=== PATIENT | female | born 1945 | race Caucasian/White ===

== ENCOUNTER 2020-01-04 12:31 | Inpatient (IN) | payer MEDICARE ==
[2020-01-04 13:30] LABS: Hemoglobin 5.4 g/dL (12.0-16.0); Mean Corpuscular HGB CONC 28.6 g/dL (32.0-36.0); Mean Corpuscular Hemoglobin 18.9 pg (27.0-31.0); Mean Corpuscular Volume 65.9 fL (78.0-98.0); Mean Platelet Volume 9.3 fL (7.4-10.4); Platelet Count 319 thou/uL (130-400); RBC Distribution Width 17.2 % (11.5-14.5); Red Blood Cell (RBC) Count 2.84 mill/uL (4.20-5.40); White Blood Cell (WBC) Count 7.5 thou/uL (4.8-10.8)
[2020-01-04 13:46] LABS: ALT (SGPT) 12 U/L (8-55); AST (SGOT) 14 U/L (5-34); Alkaline Phosphatase 61 U/L (40-110); Anion Gap 11 mmol/L (10-20); BUN (Urea Nitrogen) 10 mg/dL (9.8-20.1); Bilirubin, Total 0.6 mg/dL (0.2-1.2); Calc. Creatinine Clearance 0 mL/min (70-130); Calcium 9.1 mg/dL (7.8-10.44); Carbon Dioxide 29 mmol/L (23-31); Chloride 107 mmol/L (98-107); Estimated GFR-MDRD 72; Globulin 2.5 g/dL (2.4-3.5); Glucose 106 mg/dL (83-110); Potassium 3.1 mmol/L (3.5-5.1); Protein, Total 6.5 g/dL (6.0-8.3); Sodium 144 mmol/L (136-145)
[2020-01-04] MEDS ORDERED: Ondansetron PF 4 MG/2 ML Vial IVP PRN (13:47)
[2020-01-04] MEDS ORDERED: Senokot S 8.6-50 MG TAB PO PRN (13:47)
[2020-01-04] MEDS ORDERED: Acetaminophen 325 MG TAB PO PRN (13:47)
--- NOTE | 2020-01-04 13:47 | CT ---
CT OF BRAIN PERFORMED WITHOUT CONTRAST ENHANCEMENT: 01/04/20 HISTORY: Syncope, weakness. Ventricular and cisternal system is within normal limits. There are no signs of intracerebral hemorrh age or extra-axial fluid collection. The mastoid air cells and visualized sinuses are clear. IMPRESSION: No acute intracranial abnormalities. POS: [facility]
[2020-01-04 13:53] LABS: Anisocytosis MODERATE=16-30 cells (100X) (0-5/hpf); Band 6 % (5-11); Elliptocytes SLIGHT = 2-5 cells (100X) (0-1/hpf); Hypochromia MODERATE=16-30 cells (100X) (0-5/hpf); Lymphocytes 12 % (21-51); MDiff Complete? YES; Microcytosis MODERATE=15-30 cells (100X) (0-5/hpf); Monocytes 6 % (0-10); Neutrophil 75 % (42-75); Platelet Morphology Comment Appears Adequate; Polychromasia MODERATE = 3-4 cells (100X) (0-2/hpf); Reactive Lymphocytes 1 % (0-10); Tear Drops SLIGHT = 2-5 cells (100X) (0-1/hpf)
--- NOTE | 2020-01-04 13:57 | RAD ---
PORTABLE CHEST: 01/04/20 PROVIDED CLINICAL HISTORY: Weakness. FINDINGS: Cardiac and mediastinal silhouette is within normal limits. No focal consolidation, pleural fluid or pneumothorax apparent. IMPRESSION: No evidence for an acute cardiopulmonary process. POS: [facility]
[2020-01-04] MEDS ORDERED: Pantoprazole 40 MG VIAL ONE (14:06)
[2020-01-04] MEDS ORDERED: Potassium Chloride 20 MEQ TAB PO SCH (14:30)
--- NOTE | 2020-01-04 16:13 | HP ---
CHIEF COMPLAINT: Melena. HISTORY OF PRESENT ILLNESS: This is a 74-year-old female without significant past medical history except hiatal hernia, presenting with fatigue, tiredness, and melena. Symptoms of tiredness started in beginning of December 02. Prior to that , she had intermittent black stool since beginning of this year. She contributed to the food perhaps she is taken is turned out to be a dark stool. She does take ibuprofen occasionally, maybe 2 or 3 times a week for her arthritis flare-up. She is not on iron supplement until just this Tuesday, she started on her own because of being tired. She has hiatal hernia and she was on a generic Nexium for 11 years and then she self terminated roughly 3 years ago taking that medicine. She has a constant GERD symptoms and early satiety. She is not diabetic. She does not have routine constipation or diarrhea issues. She is not on any blood thinners. She had colonoscopy 8 years ago and that was normal and the repeat colonoscope should be done at age 77. ER course- hemoglobin 6.5, two units type and cross done, plan for transfusion. ER physician contacted the GI on-call. REVIEW OF SYSTEMS: No recent fever, night sweats, chills, productive cough, chest pain, orthopnea, PND or lower extremity edema. No nausea, vomiting, abdominal pain, constipation or diarrhea. No headache, blurriness, tingling or numbness in her extremities. No rash. Rest of review of systems are negative. ALLERGIES: NO KNOWN DRUG ALLERGIES. MEDICATIONS: None. Occasional ibuprofen use. PAST MEDICAL HISTORY: 1. Hiatal hernia. 2. Arthritis. SOCIAL HISTORY: Does not smoke or drink alcohol. FAMILY HISTORY: Noncontributory. PHYSICAL EXAMINATION: VITAL SIGNS: Temperature 98.7, pulse 82, blood pressure 153/83, and saturating 99% on room air. GENERAL: She is alert, oriented, not in any acute distress. CARDIOVASCULAR: Regular rate and rhythm without murmurs, rubs or gallops. LUNGS: Clear to auscultation bilaterally without wheezing, rales or rhonchi. ABDOMEN: Soft, nontender, and nondistended. Good bowel sounds. EXTREMITIES: Without pitting edema. NEUROLOGIC: No focal deficits. LABORATORY DATA: Her hemoglobin is 5.4, WBC is 7.5, and platelet is 319. Chemistry panel, potassium 3.1. BNP 145. Rest of the CMP panel in the normal range. IMPRESSION AND PLAN: This is a 74-year-old female with a history of hiatal hernia and occasional use of ibuprofen for arthritis, presenting with the low hemoglobin of 5.4. It appears that she had black stool since the beginning of this year. She did not seek out medical attention as she thought it is related to her diet. 1. Symptomatic anemia 2. Acute on chronic anemia. She has no history of peptic ulcer disease or diverticulosis. Unclear whether it is upper or lower GI source. Based on dark stool, this would be expected to be upper GI source. We will transfuse 2 units of blood, PPI twice a day IV form. Formal GI consult placed. Keep her n.p.o. tonight for possible endoscopy evaluation. 3. Hypokalemia. Replace the electrolytes. 4. DVT prophylaxis with the SCDs only. Full code. Job ID: [id number] MTDD
[2020-01-04 17:13] VITALS: BMI 30.2
[2020-01-04] MEDS ORDERED: GoLYTELY 4,000 ml Bottle PO SCH (19:00)
[2020-01-04] MEDS: Pantoprazole 40 MG VIAL IVP SCH (19:30)
--- NOTE | 2020-01-04 20:49 | CON ---
DATE OF CONSULTATION: 01/04/2020 REASON FOR CONSULTATION: Severe microcytic anemia. HISTORY OF PRESENT ILLNESS: Ms. Arriola is admitted today after presenting to the Emergency Room with severe anemia. She was having severe fatigue, burning in her legs, dyspnea with exertion. She was found to have a hemoglobin around 5. She reports intermittently since the beginning of the year, she has had some dark stools, at times associated with eating food or having iron. Ultimately, she figured out she was probably anemic and started out taking iron on her own. When she begin to feel so weak today, she decided to come to the hospital. She reports that she has known large hiatal hernia based on the x-ray, it was done to work up some back pain earlier this year. Additionally, she had an upper endoscopy by Dr. Gaming about 8 to 10 years ago, which she does not recall the results of, and she was taking PPIs up until about 4 to 5 years ago and she just stopped them cold turkey and just takes some Tums p.r.n., but still has quite a bit of reflux. She stopped them because she was worried about the risk of taking them long-term. She denies any chest pain, hematemesis, hematochezia, weight loss, dysphagia, or odynophagia. She reports she had a colonoscopy about eight or nine years ago that she thinks was normal. She denies any chest pain with exertion. Denies any pain radiating to the neck or arms. She takes ibuprofen very rarely. For her back, she was going to see a back surgeon, but then COVID came about. REVIEW OF SYSTEMS: Negative for cough, shortness of breath, dyspnea, night sweats, fevers, or chills. She has a little bit of swelling in her lower legs, but that has resolved. ALLERGIES: NONE KNOWN. MEDICATIONS AT HOME: Occasional ibuprofen one to three times per week. PAST MEDICAL HISTORY: Hiatal hernia, arthritis, and reflux. Shingles in the past. PAST SURGICAL HISTORY: Hysterectomy, wisdom teeth removal cholecystectomy, and left ankle fracture. SOCIAL HISTORY: Negative for alcohol, drugs, or tobacco. FAMILY HISTORY: Noncontributory. MEDICATIONS: Here; 1. Protonix 40 mg IV q.12. 2. Dulcolax p.r.n. 3. Zofran p.r.n. 4. Tylenol p.r.n. 5. She is receiving 2 units of blood. PHYSICAL EXAMINATION: GENERAL: The patient is resting comfortably in bed. VITAL SIGNS: Temperature is 98, she has been afebrile. Respirations are 18, pulse is 92, and blood pressure is 140/63. HEENT: Oropharynx without lesions. NECK: Supple without adenopathy. LUNGS: Clear. HEART: Regular rate and rhythm without clicks or murmurs. ABDOMEN: Soft and nontender. There is no palpable hepatosplenomegaly. EXTREMITIES: There is no clubbing, cyanosis, or edema. LABORATORY DATA: White count 7.5, hemoglobin 5.4, MCV 65, and platelet count 319. Comprehensive metabolic profile is normal. BNP is 145. ASSESSMENT: Severe microcytic anemia, likely related to large hiatal hernia. Her last colonoscopy was 8 to 9 years ago. PLAN: We will review old records in the office. I agree with PPI. I agree with transfusion. We will plan for EGD and colonoscopy tomorrow. The patient is amenable to that plan I would discuss with her the risks, benefits, and possible complications of endoscopy including perforation, bleeding, reaction to medication, and aspiration as well as the possible findings of ulcers, Polo's erosions or ulcers, anemia related to large hiatal hernia, and malignancy. Job ID: [id number]
[2020-01-05 00:05] LABS: Hemoglobin 7.4 g/dL (12.0-16.0); Platelet Count 297 thou/uL (130-400)
[2020-01-05 06:33] LABS: #Basophils 0.1 thou/uL (0.0-0.2); #Eosinphils 0.1 thou/uL (0.0-0.7); #Lymphocytes 1.5 thou/uL (1.20-3.40); #Monocytes 0.5 thou/uL (0.11-0.59); #Neutrophils 3.9 thou/uL (1.40-6.50); %Basophils 0.8 % (0.0-1.0); %Eosinophils 2.5 % (0.0-10.0); %Lymphocytes 24.3 % (21.0-51.0); %Monocytes 7.7 % (0.0-10.0); %Neutrophils 64.7 % (42.0-75.0); Hemoglobin 7.4 g/dL (12.0-16.0); Mean Corpuscular HGB CONC 30.7 g/dL (32.0-36.0); Mean Corpuscular Hemoglobin 21.9 pg (27.0-31.0); Mean Corpuscular Volume 71.5 fL (78.0-98.0); Platelet Count 259 thou/uL (130-400); RBC Distribution Width 20.1 % (11.5-14.5); Red Blood Cell (RBC) Count 3.37 mill/uL (4.20-5.40)
[2020-01-05 06:51] LABS: Anion Gap 12 mmol/L (10-20); BUN (Urea Nitrogen) 8 mg/dL (9.8-20.1); Calc. Creatinine Clearance 95 mL/min (70-130); Calcium 8.5 mg/dL (7.8-10.44); Carbon Dioxide 25 mmol/L (23-31); Chloride 110 mmol/L (98-107); Estimated GFR-MDRD 72; Glucose 99 mg/dL (83-110); Sodium 144 mmol/L (136-145)
[2020-01-05 06:58] LABS: Potassium 2.9 mmol/L (3.5-5.1)
[2020-01-05] MEDS: Pantoprazole 40 MG VIAL IVP SCH (08:50)
[2020-01-05] MEDS ORDERED: PROPOFOL 200 MG/20 ML VIAL ONE (13:47)
[2020-01-05] MEDS ORDERED: Ondansetron HCl/PF 4 MG/2 ML Vial IVP PRN (15:50)
[2020-01-05] MEDS ORDERED: Promethazine HCl 25 MG/ML VIAL IM PRN (15:50)
[2020-01-05] MEDS ORDERED: Promethazine HCl 25 MG/ML VIAL SLOW IVP PRN (15:50)
[2020-01-05] MEDS ORDERED: Electrolyte Replacement Protoc 1 EACH EACH FS SCH (18:00)
--- NOTE | 2020-01-05 18:05 | PDOC.HOSPP ---
- Subjective Encounter Date: 01/05/20 Encounter Time: 18:04 Subjective: Ms. Arriola was seen today in follow-up of GI bleed. She does not have any complaints. She would like to go home. - Objective Vital Signs & Weight: Vital Signs (12 hours) Temp Pulse Resp BP Pulse Ox 01/05/20 16:37 97.5 F L 65 18 145/75 H 96 01/05/20 12:19 98.0 F 71 16 144/78 H 98 01/05/20 07:40 98.7 F 75 16 110/67 98 Weight Weight 205 lb 0.478 oz I&O: 01/04/20 01/05/20 01/06/20 06:59 06:59 06:59 Intake Total 700 Balance 700 Result Diagrams: 01/05/20 06:23 01/05/20 06:23 - Exam Eye: PERRL Heart: RRR, no murmur, no gallops, no rubs, normal peripheral pulses Respiratory: CTAB, no wheezes, no rales, no ronchi, normal chest expansion Gastrointestinal: soft, non-tender, non-distended, normal bowel sounds, no palpable masses, no hepatomegaly Extremities: no cyanosis, no edema Hosp A/P (1) GI bleed Code(s): K92.2 - GASTROINTESTINAL HEMORRHAGE, UNSPECIFIED Status: Acute (2) Acute blood loss anemia Code(s): D62 - ACUTE POSTHEMORRHAGIC ANEMIA Status: Acute (3) Hiatal hernia Code(s): K44.9 - DIAPHRAGMATIC HERNIA WITHOUT OBSTRUCTION OR GANGRENE Status: Acute (4) Gastritis Code(s): K29.70 - GASTRITIS, UNSPECIFIED, WITHOUT BLEEDING Status: Acute - Plan * Acute blood loss anemia due to erosive gastritis-continue PPI * Severe anemia- will start iron * Disposition as per GI
[2020-01-05 19:31] VITALS: BP 132/70; TEMP 97.9
[2020-01-05] MEDS: Potassium Chloride 20 MEQ TAB PO SCH (20:12)
[2020-01-05 20:54] LABS: Potassium 2.9 mmol/L (3.5-5.1)
--- NOTE | 2020-01-05 21:44 | OP ---
DATE OF PROCEDURE: 01/05/2020 PROCEDURE PERFORMED: Esophagogastroduodenoscopy and colonoscopy. PREPROCEDURE DIAGNOSES: 1. Severe microcytic anemia with iron deficiency. 2. History of large hiatal hernia. 3. History of black stools at times. 4. History of intermittent NSAID use. ANESTHESIA: TIVA. POSTPROCEDURE DIAGNOSES: 1. 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 2. Antral gastritis, erosive, biopsied. 3. Biopsies of the GE junction taken as well. 4. Normal ileocolonoscopy except for large internal hemorrhoids. RECOMMENDATIONS: 1. Daily PPI therapy. If this is not an option for the patient in surgical consultation regarding repair of hiatal hernia, the outpatient setting would be an option, although I would recommend the former. 2. Await biopsies. 3. Iron supplementation daily on discharge. 4. The patient can follow up with her primary field checker, , in my office in 2 to 3 weeks. DESCRIPTION OF PROCEDURE: After the patient was informed of the risks, benefits, and possible complications of endoscopy including perforation, reaction to medication, and aspiration, informed consent was obtained. The patient was brought to endoscopy suite, where she was sedated in a gradual fashion. Once she was comfortable, a bite block was placed inside the orifice. The endoscope was advanced through the esophagus, stomach, and second and third portions of the duodenum and slowly removed. There was no active bleeding. The duodenum bulb and second portion were normal. There was normal villi pattern in the second portion. The antrum of the stomach is notable for small areas of erythema and small white-based erosions; the largest being about 5 mm in size. No active bleeding was seen. Biopsies were taken for H. pylori. Retroflexed views were normal in the proximal stomach. There was a large hiatal hernia, sliding type, present with the hiatus at 42 cm and the proximal gastric folds at 35 cm and the GE junction at 35 cm. There was some erosion of the GE junction. This was biopsied. There were few small Polo's erosions, but they were not bleeding. The stomach was desufflated. The scope was removed. The patient tolerated the procedure well. No complications. The patient was turned to the room and rectal examination performed was normal. The endoscope was advanced through the anal canal through the colon to the cecum which was identified by the ileocecal valve and appendiceal orifice. There were few diverticula scattered. Retroflexed views in the rectum revealed hemorrhoids. The prep was good. No other lesions were seen. The scope was removed. The patient tolerated the procedure well. No complications. Job ID: [id number]
[2020-01-06] MEDS: Potassium Chloride 20 MEQ TAB PO SCH (00:49)
[2020-01-06 06:11] LABS: #Eosinphils 0.2 thou/uL (0.0-0.7); #Lymphocytes 1.3 thou/uL (1.20-3.40); #Monocytes 0.4 thou/uL (0.11-0.59); #Neutrophils 3.8 thou/uL (1.40-6.50); %Basophils 0.5 % (0.0-1.0); %Eosinophils 2.7 % (0.0-10.0); %Lymphocytes 22.6 % (21.0-51.0); %Monocytes 7.6 % (0.0-10.0); %Neutrophils 66.6 % (42.0-75.0); Hemoglobin 7.5 g/dL (12.0-16.0); Mean Corpuscular HGB CONC 31.6 g/dL (32.0-36.0); Mean Corpuscular Hemoglobin 22.8 pg (27.0-31.0); Mean Corpuscular Volume 72.2 fL (78.0-98.0); Mean Platelet Volume 10.1 fL (7.4-10.4); Platelet Count 238 thou/uL (130-400); RBC Distribution Width 21.6 % (11.5-14.5); Red Blood Cell (RBC) Count 3.28 mill/uL (4.20-5.40); White Blood Cell (WBC) Count 5.6 thou/uL (4.8-10.8)
[2020-01-06 06:13] LABS: Anion Gap 9 mmol/L (10-20); BUN (Urea Nitrogen) 6 mg/dL (9.8-20.1); Calc. Creatinine Clearance 104 mL/min (70-130); Calcium 8.3 mg/dL (7.8-10.44); Carbon Dioxide 27 mmol/L (23-31); Chloride 111 mmol/L (98-107); Estimated GFR-MDRD 80; Glucose 98 mg/dL (83-110); Potassium 3.5 mmol/L (3.5-5.1); Sodium 143 mmol/L (136-145)
[2020-01-06] MEDS ORDERED: Potassium Chloride 20 MEQ TAB PO SCH (06:45)
[2020-01-06] MEDS ORDERED: Iron Polysaccharides Complex 150 MG CAP PO SCH (08:00)
--- NOTE | 2020-01-06 10:36 | PDOC.HOSPP ---
- Subjective Encounter Date: 01/06/20 Encounter Time: 10:35 Subjective: Mr. Arriola was seen today in follow-up of GI- Bleed. She does not have any complaints this morning. - Objective Vital Signs & Weight: Weight Weight 205 lb 0.478 oz I&O: 01/05/20 01/06/20 01/07/20 06:59 06:59 06:59 Intake Total 700 Balance 700 Result Diagrams: 01/06/20 05:31 01/06/20 05:31 Hospitalist ROS - Medication Medications: Active Medications Generic Name Dose Route Start Last Admin Trade Name Freq PRN Reason Stop Dose Admin Pantoprazole Sodium 40 mg 01/06/20 09:00 01/06/20 10:02 Protonix PO 40 mg DAILY JAREK Administration Polysaccharide Iron Complex 150 mg 01/06/20 08:00 01/06/20 10:02 Niferex PO 150 mg QAM-WM JAREK Administration - Exam Eye: PERRL, anicteric sclera Heart: RRR, no murmur, no gallops, no rubs, normal peripheral pulses Respiratory: CTAB, no wheezes, no rales, no ronchi, normal chest expansion, no tachypnea Gastrointestinal: soft, non-tender, non-distended, normal bowel sounds, no palpable masses Extremities: no cyanosis Hosp A/P (1) GI bleed Code(s): K92.2 - GASTROINTESTINAL HEMORRHAGE, UNSPECIFIED Status: Acute (2) Acute blood loss anemia Code(s): D62 - ACUTE POSTHEMORRHAGIC ANEMIA Status: Acute (3) Hiatal hernia Code(s): K44.9 - DIAPHRAGMATIC HERNIA WITHOUT OBSTRUCTION OR GANGRENE Status: Acute (4) Gastritis Code(s): K29.70 - GASTRITIS, UNSPECIFIED, WITHOUT BLEEDING Status: Acute - Plan * Acute blood loss anemia due to erosive gastritis-continue PPI * Severe anemia- will start iron * She has been cleared for discharge by GI and follow-up in 2-3 weeks.
--- NOTE | 2020-01-06 18:56 | DIS ---
DATE OF ADMISSION: 01/04/2020 DATE OF DISCHARGE: 01/06/2020 DISCHARGE DISPOSITION: Home. DISCHARGE DIAGNOSES: 1. Acute blood loss anemia. 2. Gastrointestinal bleed or erosive gastritis with bleed. 3. Hiatal hernia. 4. Arthritis. DISCHARGE MEDICATIONS: Include; 1. Protonix 40 mg daily. 2. Ferrex 150 mg daily. IMAGING DONE DURING THE HOSPITAL STAY: The patient had a CT scan of the brain, which was negative for any intracranial abnormalities. The patient had an upper and lower endoscopy, in which there was evidence of a 6 cm sliding hiatal hernia with Polo's erosions and erosions of the GE junction. There was antral gastritis and the colonoscopy was normal except for some large internal hemorrhoids. CODE STATUS: Full code. ALLERGIES: NO KNOWN DRUG ALLERGIES. HOSPITAL COURSE: Ms. Arriola is a very pleasant 74-year-old female, who presented to the hospital complaining of severe weakness and some shortness of breath. When she was evaluated in the ER, she was found to be severely anemic with a hemoglobin of 5.4. She had a microcytic anemia. GI was consulted and she underwent upper and lower endoscopy. It was felt that the GI bleed was the result of a large hiatal hernia as well as erosive esophagitis. She was placed on proton pump inhibitor as well as supplemental iron and she will need to be on the proton pump inhibitor indefinitely. She is to follow up with Dr. Gaming in 2 to 3 weeks and also with her primary care physician in approximately 2 weeks as well. Job ID: [id number]
== END 2020-01-06 11:54 | disposition home or self-care (01) | DRG 378 ==
LOC: ERS 12:31 → T4-B 15:07
PROVIDERS: ADMIT Internal Medicine; ATTEND Internal Medicine
PROC: 30233N1 Transfusion of Nonautologous Red Blood Cells into Peripheral Vein, Percutaneous Approach (ICD-10-PCS; 2020-01-04)
PROC: 0DB78ZX Excision of Stomach, Pylorus, Via Natural or Artificial Opening Endoscopic, Diagnostic (ICD-10-PCS; principal; 2020-01-05)
PROC: 0DJD8ZZ Inspection of Lower Intestinal Tract, Via Natural or Artificial Opening Endoscopic (ICD-10-PCS; 2020-01-05)
DX: K29.01 Acute gastritis with bleeding (principal); D62 Acute posthemorrhagic anemia; D50.9 Iron deficiency anemia, unspecified; K21.9 Gastro-esophageal reflux disease without esophagitis; K44.9 Diaphragmatic hernia without obstruction or gangrene; M19.90 Unspecified osteoarthritis, unspecified site; K64.8 Other hemorrhoids; E87.6 Hypokalemia; Z87.891 Personal history of nicotine dependence; Z90.49 Acquired absence of other specified parts of digestive tract; Z90.710 Acquired absence of both cervix and uterus
CPT/HCPCS: 36415; 36430; 70450; 71045; 80048; 80053; 83735; 83880; 84484; 85025; 86850; 86900; 86901; 88305; 88312; 88313; 93005; 96374; C9113; J2704; P9016

== ENCOUNTER 2020-09-04 13:26 | Outpatient (CLI) | payer MEDICARE | END 2020-09-04 13:27 | disposition home or self-care (01) | LOC: BICMAMMO 13:26 | PROVIDERS: ATTEND Family Medicine | DX: Z12.31 Encounter for screening mammogram for malignant neoplasm of breast (principal) | CPT/HCPCS: 77063; 77067 ==

== ENCOUNTER 2022-02-19 12:55 | Outpatient (CLI) | payer MEDICARE | END 2022-02-19 12:56 | disposition home or self-care (01) | LOC: BICMAMMO 12:55 | PROVIDERS: ATTEND Family Medicine | DX: Z12.31 Encounter for screening mammogram for malignant neoplasm of breast (principal) | CPT/HCPCS: 77063; 77067 ==

== ENCOUNTER 2022-03-23 12:39 | Outpatient (CLI) | payer MEDICARE | END 2022-03-23 12:40 | disposition home or self-care (01) | LOC: MRI 12:39 | PROVIDERS: ATTEND Family Medicine | DX: M47.816 Spondylosis without myelopathy or radiculopathy, lumbar region (principal); M51.9 Unspecified thoracic, thoracolumbar and lumbosacral intervertebral disc disorder; G89.4 Chronic pain syndrome; M51.36 Other intervertebral disc degeneration, lumbar region; M51.26 Other intervertebral disc displacement, lumbar region; M48.061 Spinal stenosis, lumbar region without neurogenic claudication | CPT/HCPCS: 72148 ==

== ENCOUNTER 2023-06-10 12:50 | Outpatient (CLI) | payer MEDICARE | END 2023-06-10 12:51 | disposition home or self-care (01) | LOC: BICMAMMO 12:50 | PROVIDERS: ATTEND Family Medicine | DX: Z12.31 Encounter for screening mammogram for malignant neoplasm of breast (principal); Z80.3 Family history of malignant neoplasm of breast | CPT/HCPCS: 77063; 77067 ==